=== PATIENT | female | born 1960 | race Caucasian/White ===

== ENCOUNTER → 2016-08-15 | Outpatient (REF) | payer OTHER ==
[~2016-08-15] MED LIST: /PRAV20TA PO; ALEV220C2 PO; BACT800T5 PO; HEPA100SYR IV; IBUP200C PO; MULTTAB4 PO; NALL2INJ2 IV; SLF IV; SYNT100T PO; TYLE325T5 PO; VITA500046 PO; VITA500047 PO
[2016-08-15 14:19] LABS: EOS # 0.1 K/mm3 (0.0-0.50); EOS % 3.2 % (0.0-3.0); LARGE UNSTAINED CELL # 0.2 K/mm3 (0.0-0.4); LARGE UNSTAINED CELL % 4.6 % (0.0-4.0); LYMPH # 1.8 K/mm3 (1.5-4.5); LYMPH % 39.7 % (24.0-44.0); MEAN CORPUSCULAR HGB CONC 32.7 g/dl (32.0-36.5); MONO # 0.2 K/mm3 (0.0-0.8); MONO % 4.8 % (0.0-5.0); NEUTROPHILS # 1.9 K/mm3 (1.8-7.7); NEUTROPHILS % 46.7 % (36.0-66.0); PLATELET COUNT, AUTOMATED 224 k/mm3 (150-450); RED CELL DISTRIBUTION WIDTH 13.8 % (11.5-14.5); WHITE BLOOD COUNT 4.1 K/mm3 (4.0-10.0)
[2016-08-15 15:21] LABS: ALBUMIN 3.6 GM/DL (3.2-5.2); ALKALINE PHOSPHATASE 78 U/L (45-117); ALT/SGPT 36 U/L (12-78); ANION GAP 10 MEQ/L (8-16); AST/SGOT 21 U/L (15-37); BILIRUBIN,TOTAL 0.3 MG/DL (0.2-1.0); BLOOD UREA NITROGEN 12 MG/DL (7-18); CARBON DIOXIDE LEVEL 25 MEQ/L (21-32); CHLORIDE LEVEL 106 MEQ/L (98-107); CHOLESTEROL LEVEL 178 MG/DL (<200); CREATININE FOR GFR 0.83 MG/DL (0.55-1.02); FREE T4 1.12 NG/DL (0.76-1.46); GLOMERULAR FILTRATION RATE > 60.0 (>51); GLUCOSE, FASTING 106 MG/DL (70-105); POTASSIUM SERUM 4.5 MEQ/L (3.5-5.1); SODIUM LEVEL 141 MEQ/L (136-145); TOTAL PROTEIN 6.6 GM/DL (6.4-8.2); TRIGLYCERIDES LEVEL 180 MG/DL (<150)
== END ==
LOC: M LABDRAW1 12:51
PROVIDERS: ATTEND Family Medicine
DX: E78.2 Mixed hyperlipidemia (principal); E03.9 Hypothyroidism, unspecified

== ENCOUNTER → 2016-10-18 | Day surgery (SDC) | payer BC, OTHER ==
[~2016-10-18] VITALS: Ht 167.6 cm; Wt 136.1 kg
[~2016-10-18] MED LIST changes: +ASPI81TA85 PO; +COQ1100C PO; +LR 1,000 ML IV SCH; +MIDAZOLAM INJ 2 MG/2 ML VIAL (J2250) As Ordered ONE; +PRAV1TAB39 PO; +PROPOFOL 200 MG/20 ML VIAL As Ordered ONE; +SYNT125T PO; +VITA50003 PO
--- NOTE | 2016-10-18 11:53 | ROOR ---
Patient Name: Jadyn Burgess Procedure Date: 10/18/2016 10:44 AM Date of : 1960 Age: 56 Gender: Female Note Status: Finalized Procedure: Colonoscopy Indications: High risk colon cancer surveillance: Personal history of colonic polyps Providers: Richard Sahu Jr, MD Referring MD: Richard Sahu Jr, MD Requesting Provider: Medicines: Propofol per Anesthesia Complications: No immediate complications. Procedure: Pre-Anesthesia Assessment: - Prior to the procedure, a History and Physical was performed, and patient medications and allergies were reviewed. The patient is competent. The risks and benefits of the procedure and the sedation options and risks were discussed with the patient. All questions were answered and informed consent was obtained. Patient identification and proposed procedure were verified by the physician and the nurse in the pre-procedure area and in the procedure room. Mental Status Examination: alert and oriented. Airway Examination: normal oropharyngeal airway and neck mobility. Respiratory Examination: clear to auscultation. CV Examination: normal. ASA Grade Assessment: II - A patient with mild systemic disease. After reviewing the risks and benefits, the patient was deemed in satisfactory condition to undergo the procedure. The anesthesia plan was to use moderate sedation / analgesia (conscious sedation). Immediately prior to administration of medications, the patient was re-assessed for adequacy to receive sedatives. The heart rate, respiratory rate, oxygen saturations, blood pressure, adequacy of pulmonary ventilation, and response to care were monitored throughout the procedure. The physical status of the patient was re-assessed after the procedure. The Colonoscope was introduced through the anus and advanced to the cecum, identified by appendiceal orifice and ileocecal valve. The colonoscopy was performed without difficulty. The patient tolerated the procedure well. The quality of the bowel preparation was adequate and fair. Findings: The perianal and digital rectal examinations were normal. Pertinent negatives include normal sphincter tone, no palpable rectal lesions and no anal lesion or abnormality was detected. Multiple small and large-mouthed diverticula were found in the sigmoid colon. A few small and large-mouthed diverticula were found in the transverse colon and ascending colon. The rectum, recto-sigmoid colon, descending colon, transverse colon, ascending colon, cecum and ileocecal valve appeared normal. Impression: - Preparation of the colon was fair. - Diverticulosis in the sigmoid colon. - Diverticulosis in the transverse colon and in the ascending colon. - The rectum, recto-sigmoid colon, descending colon, transverse colon, ascending colon, cecum and ileocecal valve are normal. - No specimens collected. Recommendation: - Discharge patient to home (ambulatory). - Repeat colonoscopy in 5 years for surveillance. Richard Sahu MD Richard Sahu Jr, MD 10/18/2016 11:53:18 AM This report has been signed electronically. Number of Addenda: 0 Note Initiated On: 10/18/2016 10:44 AM Estimated Blood Loss: Estimated blood loss: none.
[2016-10-18 13:00] VITALS: BP 147/69
== END | disposition home or self-care (01) ==
LOC: M SDC 09:41
PROVIDERS: ATTEND Surgery
DX: Z12.11 Encounter for screening for malignant neoplasm of colon (principal); Z86.010 Personal history of colon polyps; K57.30 Diverticulosis of large intestine without perforation or abscess without bleeding; E78.5 Hyperlipidemia, unspecified; E03.9 Hypothyroidism, unspecified; K21.9 Gastro-esophageal reflux disease without esophagitis; E66.01 Morbid (severe) obesity due to excess calories; G47.30 Sleep apnea, unspecified; Z79.82 Long term (current) use of aspirin; Z79.899 Other long term (current) drug therapy; Z85.41 Personal history of malignant neoplasm of cervix uteri; Z92.3 Personal history of irradiation
CPT/HCPCS: 45378; J2250

== ENCOUNTER → 2017-10-06 | Outpatient (REF) | payer OTHER ==
[2017-10-06 11:04] LABS: BASO # 0.1 10^3/uL (0.0-0.2); BASO % 1.2 % (0.0-1.0); EOS # 0.1 10^3/uL (0.0-0.50); EOS % 2.3 % (0.0-3.0); HEMATOCRIT 42.6 % (36.0-47.0); HEMOGLOBIN 13.9 g/dl (12.0-15.5); IMMATURE GRANULOCYTE % 0.2 % (0-3.0); LYMPH # 1.8 10^3/uL (1.5-4.5); LYMPH % 42.6 % (24.0-44.0); MEAN CORPUSCULAR HGB CONC 32.6 g/dl (32.0-36.5); MEAN CORPUSCULAR VOLUME 88.8 fl (80.0-96.0); MONO # 0.3 10^3/uL (0.0-0.8); NEUTROPHILS % 45.7 % (36.0-66.0); PLATELET COUNT, AUTOMATED 258 10^3/uL (150-450); RED CELL DISTRIBUTION WIDTH 13.8 % (11.5-14.5); WHITE BLOOD COUNT 4.3 10^3/uL (4.0-10.0)
[2017-10-06 11:32] LABS: ESTIMATED AVERAGE GLUCOSE 128 MG/DL (60-110); HEMOGLOBIN A1c 6.1 %
[2017-10-06 11:39] LABS: ALBUMIN 3.5 GM/DL (3.2-5.2); ALBUMIN/GLOBULIN RATIO 1.09 (1.00-1.93); ALKALINE PHOSPHATASE 80 U/L (45-117); ALT/SGPT 47 U/L (12-78); ANION GAP 7 MEQ/L (8-16); AST/SGOT 22 U/L (7-37); BILIRUBIN,TOTAL 0.4 MG/DL (0.2-1.0); BLOOD UREA NITROGEN 11 MG/DL (7-18); CALCIUM LEVEL 8.7 MG/DL (8.5-10.1); CARBON DIOXIDE LEVEL 27 MEQ/L (21-32); CHLORIDE LEVEL 107 MEQ/L (98-107); CHOLESTEROL LEVEL 192 MG/DL (<200); CHOLESTEROL RISK RATIO 4.682 (<5); CREATININE FOR GFR 0.73 MG/DL (0.55-1.30); GLOMERULAR FILTRATION RATE > 60.0 (>51); GLUCOSE, FASTING 101 MG/DL (70-100); HDL CHOLESTEROL 41 MG/DL (>40); LDL CHOLESTEROL 123.6 MG/DL (<100); NON-HDL-C 151 MG/DL; POTASSIUM SERUM 4.5 MEQ/L (3.5-5.1); SODIUM LEVEL 141 MEQ/L (136-145); THYROID STIMULATING HORMONE 0.942 uIU/ML (0.358-3.740); TOTAL PROTEIN 6.7 GM/DL (6.4-8.2); TRIGLYCERIDES LEVEL 137 MG/DL (<150)
== END ==
LOC: M LABDRAW1 10:42
DX: Z00.00 Encounter for general adult medical examination without abnormal findings (principal); E03.9 Hypothyroidism, unspecified; R73.01 Impaired fasting glucose
CPT/HCPCS: 84443

== ENCOUNTER → 2018-05-07 | Outpatient (REF) | payer OTHER ==
[2018-05-07 19:21] LABS: ALBUMIN 3.7 GM/DL (3.2-5.2); ALBUMIN/GLOBULIN RATIO 1.19 (1.00-1.93); ALKALINE PHOSPHATASE 68 U/L (45-117); ALT/SGPT 65 U/L (12-78); ANION GAP 7 MEQ/L (8-16); AST/SGOT 29 U/L (7-37); BILIRUBIN,TOTAL 0.4 MG/DL (0.2-1.0); BLOOD UREA NITROGEN 19 MG/DL (7-18); CALCIUM LEVEL 9.2 MG/DL (8.5-10.1); CARBON DIOXIDE LEVEL 28 MEQ/L (21-32); CHLORIDE LEVEL 105 MEQ/L (98-107); CREATININE FOR GFR 0.82 MG/DL (0.55-1.30); FREE T4 1.15 NG/DL (0.76-1.46); GLOMERULAR FILTRATION RATE > 60.0 (>51); GLUCOSE, FASTING 90 MG/DL (70-100); POTASSIUM SERUM 4.7 MEQ/L (3.5-5.1); SODIUM LEVEL 140 MEQ/L (136-145); THYROID STIMULATING HORMONE 0.858 uIU/ML (0.358-3.740); TOTAL PROTEIN 6.8 GM/DL (6.4-8.2)
[2018-05-07 19:39] LABS: ESTIMATED AVERAGE GLUCOSE 128 MG/DL (60-110); HEMOGLOBIN A1c 6.1 %
== END ==
LOC: M LABDRAW1 17:22
DX: E03.9 Hypothyroidism, unspecified (principal); R73.01 Impaired fasting glucose

== ENCOUNTER → 2018-11-07 | Outpatient (REF) | payer OTHER ==
[~2018-11-07] MED LIST changes: -/PRAV20TA PO; -LR 1,000 ML IV SCH; -MIDAZOLAM INJ 2 MG/2 ML VIAL (J2250) As Ordered ONE; -PROPOFOL 200 MG/20 ML VIAL As Ordered ONE; -VITA50003 PO; +VITA50005 PO
[2018-11-07 13:18] LABS: ALBUMIN 3.5 GM/DL (3.2-5.2); ALT/SGPT 53 U/L (12-78); BILIRUBIN,TOTAL 0.5 MG/DL (0.2-1.0); BLOOD UREA NITROGEN 16 MG/DL (7-18); CALCIUM LEVEL 8.9 MG/DL (8.5-10.1); CARBON DIOXIDE LEVEL 24 MEQ/L (21-32); CHLORIDE LEVEL 105 MEQ/L (98-107); CHOLESTEROL LEVEL 197 MG/DL (<200); CHOLESTEROL RISK RATIO 4.191 (<5); CREATININE FOR GFR 0.76 MG/DL (0.55-1.30); GLOMERULAR FILTRATION RATE > 60.0 (>51); GLUCOSE, FASTING 94 MG/DL (70-100); HDL CHOLESTEROL 47 MG/DL (>40); LDL CHOLESTEROL 121 MG/DL (<100); NON-HDL-C 150 MG/DL; POTASSIUM SERUM 4.3 MEQ/L (3.5-5.1); SODIUM LEVEL 139 MEQ/L (136-145); TOTAL PROTEIN 6.9 GM/DL (6.4-8.2); TRIGLYCERIDES LEVEL 144 MG/DL (<150)
== END ==
LOC: M LABDRAW1 11:18
PROVIDERS: ATTEND Family Medicine
DX: R73.01 Impaired fasting glucose (principal); E78.2 Mixed hyperlipidemia

== ENCOUNTER → 2019-05-13 | Outpatient (REF) | payer OTHER ==
[2019-05-13 12:38] LABS: FREE T4 1.19 NG/DL (0.76-1.46); THYROID STIMULATING HORMONE 2.1 uIU/ML (0.358-3.740)
[2019-05-13 13:26] LABS: HEMOGLOBIN A1c 5.7 %
== END ==
LOC: M LABDRAW1 11:44
PROVIDERS: ATTEND Family Medicine
DX: E03.9 Hypothyroidism, unspecified (principal); R73.01 Impaired fasting glucose

== ENCOUNTER → 2020-04-29 | Outpatient (CLI) | payer OTHER ==
[~2020-04-29] MED LIST changes: -ASPI81TA85 PO; +ASPI81TA86 PO
[2020-04-29 12:21] LABS: ALBUMIN 3.5 GM/DL (3.2-5.2); ALT/SGPT 49 U/L (12-78); BILIRUBIN,TOTAL 0.5 MG/DL (0.2-1.0); BLOOD UREA NITROGEN 13 MG/DL (7-18); CALCIUM LEVEL 9.4 MG/DL (8.8-10.2); CARBON DIOXIDE LEVEL 28 MEQ/L (21-32); CHLORIDE LEVEL 105 MEQ/L (98-107); CHOLESTEROL LEVEL 257 MG/DL (<200); CHOLESTEROL RISK RATIO 5.586 (<5); CREATININE FOR GFR 0.65 MG/DL (0.55-1.30); GLOMERULAR FILTRATION RATE > 60.0 (>45); GLUCOSE, FASTING 95 MG/DL (70-100); HDL CHOLESTEROL 46 MG/DL (>40); LDL CHOLESTEROL 181 MG/DL (<100); NON-HDL-C 211 MG/DL; POTASSIUM SERUM 4.9 MEQ/L (3.5-5.1); SODIUM LEVEL 139 MEQ/L (136-145); TOTAL PROTEIN 6.8 GM/DL (6.4-8.2); TRIGLYCERIDES LEVEL 152 MG/DL (<150)
== END ==
LOC: M WUC 08:43
PROVIDERS: ATTEND Family Medicine
DX: E78.2 Mixed hyperlipidemia (principal); R73.01 Impaired fasting glucose

== ENCOUNTER 2021-01-09 08:51 | Emergency (ER) | payer BC, OTHER ==
[~2021-01-09] VITALS: Ht 167.6 cm; Wt 144.6 kg
[2021-01-09 09:54] LABS: HEMATOCRIT 46.6 % (36.0-47.0); HEMOGLOBIN 15.2 g/dl (12.0-15.5); MEAN CORPUSCULAR HEMOGLOBIN 29.4 pg (27.0-33.0); MEAN CORPUSCULAR HGB CONC 32.6 g/dl (32.0-36.5); MEAN CORPUSCULAR VOLUME 90.1 fl (80.0-96.0); PLATELET COUNT, AUTOMATED 284 10^3/uL (150-450); RED BLOOD COUNT 5.17 10^6/uL (4.00-5.40); WHITE BLOOD COUNT 6.8 10^3/uL (4.0-10.0)
[2021-01-09 10:16] LABS: HEMOGLOBIN A1c 5.9 %
[2021-01-09 10:19] LABS: BLOOD UREA NITROGEN 13 MG/DL (7-18); CALCIUM LEVEL 9.2 MG/DL (8.8-10.2); CARBON DIOXIDE LEVEL 25 MEQ/L (21-32); CHLORIDE LEVEL 109 MEQ/L (98-107); CK-MB VALUE MASS 1.2 NG/ML (<3.6); CPK CREATINE PHOSPHOKINASE 57 U/L (26-192); GLOMERULAR FILTRATION RATE > 60.0 (>45); GLUCOSE, FASTING 109 MG/DL (70-100); MB/CK RELATIVE INDEX 2.11 (< OR =4); POTASSIUM SERUM 4.5 MEQ/L (3.5-5.1); SODIUM LEVEL 140 MEQ/L (136-145); TROPONIN I < 0.02 NG/ML (< 0.10)
[2021-01-09 10:21] LABS: ATYPICAL LYMPH 13 % (0-5); EOSINOPHILS 2 % (0-3); LYMPHOCYTES 23 % (16-44); MONOCYTES 8 % (0-5); NEUTROPHILS 53 % (28-66)
[2021-01-09 10:24] LABS: PLATELET ESTIMATE NORMAL (NORMAL)
--- NOTE | 2021-01-09 11:01 | ECGEPIP ---
[facility] - ED Test Date: 2021-01-09 Pat Name: SAADIA SCHWARTZ Department: Room: - Gender: Female [employer]: : 1960 Requested By: Thad Allen Order Number: [id number] Reading MD: Ashlee Lezama Measurements Intervals [place] Rate: 68 P: 38 [place]: 168 QRS: 35 QRSD: 90 T: 36 QT: 434 QTc: 461 Interpretive Statements Normal sinus rhythm Cannot rule out Anterior infarct , age undetermined, clinical correlation no prior Electronically Signed on 01-09-2021 11:01:12 EDT by Ashlee Lezama
--- NOTE | 2021-01-09 11:03 | REP ---
INDICATION: dizziness. COMPARISON: None. TECHNIQUE: CT BRAIN PERFORMED IN THE AXIAL PLANE. CORONAL RECONSTRUCTION IMAGES ARE PERFORMED. FINDINGS: THE VENTRICLES ARE NORMAL IN SIZE AND POSITION FOR THE PATIENT'S STATED AGE. THERE IS SOME HYPEROSTOSIS FRONTALIS INTERNA, NOT UNCOMMONLY SEEN IN THIS AGE GROUP VARIATION. THERE IS NO MIDLINE SHIFT OR MASS EFFECT. JOHNSON-WHITE DIFFERENTIATION IS WELL MAINTAINED. SOME MINOR HETEROGENEOUS WHITE MATTER ATTENUATION THAT MAY SUGGEST SOME MILD SMALL VESSEL ISCHEMIC CHANGE, CHRONIC. THERE IS NO ACUTE INTRACRANIAL HEMORRHAGE OR EXTRA-AXIAL FLUID COLLECTION. NO MASS OR ABNORMAL CALCIFICATION. POSTERIOR FOSSA AND BASAL CISTERNS ARE GROSSLY INTACT. SOME MINOR ATHEROSCLEROTIC CALCIFICATIONS IN SIPHON IS BONE WINDOW EXAMINATION IS OTHERWISE UNREMARKABLE. VISUALIZED MASTOID AIR CELLS AND PARANASAL SINUSES ARE CLEAR. IMPRESSION: SOME MINOR SMALL-VESSEL ISCHEMIC CHANGES IN THE WHITE MATTER, MINOR ATHEROSCLEROTIC CALCIFICATIONS IN THE CAROTID SIPHONS BUT OTHERWISE NEGATIVE NONCONTRAST CT BRAIN. NOTHING ACUTE. <Electronically signed by Brant Bingham > 01/09/21 [id number]
[2021-01-09] MEDS ORDERED: ISOVUE-370 76% 100ML VIAL As Ordered ONE (11:14)
--- NOTE | 2021-01-09 12:24 | REP ---
INDICATION: dizziness r/o cerebellar CVA. COMPARISON: CT brain 01/09/2021 TECHNIQUE: CT angiogram brain with bolus Isovue 371 mL scanning through the brain with axial coronal and sagittal MIP reformats and standard sagittal coronal reformats. 3D surface rendering of the vascular tree also reconstructed. FINDINGS: There is no enhancing mass on the contrast images in axial or other projections. Visualized mastoids and sinuses were clear there is deviation of the nasal septum towards the left. Orbits and contents are grossly symmetric and unremarkable. The vertebral arteries shows slightly larger left than right contribution to the basilar artery is anatomic variation. They are tortuous and the basilar artery is tortuous without aneurysm or stenosis. Symmetric right left posterior cerebral arteries without stenosis or aneurysm in their supply of the posterior fossa. The right internal carotid artery shows atherosclerotic plaque at the skull base and some in the carotid siphon without stenosis or aneurysm. Supraclinoid, A1 and M1 segments unremarkable. The A2, M2 and M3 segments also appear grossly intact on the right side without stenosis or aneurysm. No abnormal gyriform enhancement on either side. The left internal carotid artery at the skull base and to a lesser extent in the carotid siphon shows atherosclerotic plaque without stenosis or aneurysm the A1, M1 segments and supraclinoid carotid were intact. The A2 and M2/M3 segments also grossly intact throughout. IMPRESSION: 1. Some minor atherosclerotic calcifications of the internal carotids at the skull base and in the carotid siphons without stenosis or aneurysm. Posterior circulation also without stenosis or aneurysm. 2. No abnormal enhancing mass, gyriform enhancement or abnormal meningeal enhancement suggested. Negative exam for acute vascular finding. <Electronically signed by Brant Bingham > 01/09/21 [id number]
--- NOTE | 2021-01-09 13:25 | REP ---
CONTRAST: 100 mL Isovue 370. INDICATION: Dizziness COMPARISON: CT angio head: 01/09/2021 TECHNIQUE: Bolus 100 mL Isovue 370 scanning from aortic arch to the skull base with coronal and sagittal standard and MIP reconstructions FINDINGS: Vascular: Extensive spray artifact related to the shoulders and body habitus considerations over the aortic arch and lower neck. That said no gross stenosis aneurysm or mass about the aortic arch and proximal great vessels. The right common carotid is without stenosis or aneurysm. There is slight dilatation of the bulb but no significant soft or calcific plaque in the proximal ICA or ECA. The ICA to the skull base without stenosis aneurysm or significant plaque. The left common carotid shows some scattered areas of plaque without stenosis. Mild prominence of the bulb without stenosis or poststenotic dilatation present there are small calcifications at the bulb. The left internal carotid artery shows no stenosis or aneurysm to the skull base. The vertebral arteries are generally symmetric at their origins with slightly larger left than right diameter through their course as anatomic variation. The basilar artery shows no stenosis or aneurysm. Nonvascular lung apices without definite acute finding. Some mild interstitial changes are suspected. The bone windows show the upper thoracic vertebral bodies with some degenerative change but no destructive lesion portions of the 1st 4 rib pairs seen and medial clavicles are unremarkable. There is some cervical spondylosis from C 4 5 through C6-7 with disc space narrowing at C5-6 and C6-7 and no compression fracture or destructive lesion no definite prevertebral swelling. Airway intact. Some mild foraminal encroachment at C4-5, C5-6 and C6-7 due to combined factors. Central canal adequate. No definite pr added or submandibular mass. There are some scattered cervical lymph nodes bilaterally, all subcentimeter. IMPRESSION: 1. Some minor atherosclerotic plaque at the carotid bulb on the left but no stenosis or aneurysm of the right or left internal carotid from their origin at the bulb through the neck to the skull base. The vertebral arteries and proximal basilar artery without stenosis or aneurysm. Minor asymmetric size, left greater than right for the vertebral arteries is normal. 2. No other significant or acute finding. <Electronically signed by Brant Bingham > 01/09/21 [id number]
[2021-01-09] MEDS ORDERED: MECL-86 PO (14:09)
[2021-01-09 14:15] VITALS: BP 147/80
== END 2021-01-09 14:36 | disposition home or self-care (01) ==
LOC: M ED 08:51
DX: R42 Dizziness and giddiness (principal); I67.2 Cerebral atherosclerosis; R73.03 Prediabetes; E78.5 Hyperlipidemia, unspecified; E66.9 Obesity, unspecified; E03.9 Hypothyroidism, unspecified; G47.33 Obstructive sleep apnea (adult) (pediatric); Z90.710 Acquired absence of both cervix and uterus; Z79.890 Hormone replacement therapy
CPT/HCPCS: 36415; 70450; 70496; 70498; 80048; 82550; 82553; 83036; 84484; 85025; 93005; 99284; Q9967

== ENCOUNTER → 2021-02-08 | Outpatient (CLI) | payer BC, OTHER ==
[~2021-02-08] MED LIST changes: +MECL-86 PO
[2021-02-08 10:53] LABS: HEMATOCRIT 45.5 % (36.0-47.0); HEMOGLOBIN 14.3 g/dl (12.0-15.5); MEAN CORPUSCULAR HEMOGLOBIN 28.7 pg (27.0-33.0); MEAN CORPUSCULAR HGB CONC 31.4 g/dl (32.0-36.5); MEAN CORPUSCULAR VOLUME 91.4 fl (80.0-96.0); PLATELET COUNT, AUTOMATED 289 10^3/uL (150-450); RED BLOOD COUNT 4.98 10^6/uL (4.00-5.40); WHITE BLOOD COUNT 6.8 10^3/uL (4.0-10.0)
[2021-02-08 11:38] LABS: ALBUMIN 3.6 GM/DL (3.2-5.2); ALT/SGPT 57 U/L (12-78); BILIRUBIN,TOTAL 0.5 MG/DL (0.2-1.0); BLOOD UREA NITROGEN 17 MG/DL (7-18); CALCIUM LEVEL 8.6 MG/DL (8.8-10.2); CARBON DIOXIDE LEVEL 27 MEQ/L (21-32); CHLORIDE LEVEL 107 MEQ/L (98-107); CREATININE FOR GFR 0.71 MG/DL (0.55-1.30); GLOMERULAR FILTRATION RATE > 60.0 (>45); GLUCOSE, FASTING 112 MG/DL (70-100); POTASSIUM SERUM 4.7 MEQ/L (3.5-5.1); SODIUM LEVEL 139 MEQ/L (136-145); TOTAL PROTEIN 6.4 GM/DL (6.4-8.2)
[2021-02-08 12:29] LABS: ATYPICAL LYMPH 11 % (0-5); BASOPHILS 1 % (0-1); LYMPHOCYTES 51 % (16-44); MONOCYTES 6 % (0-5); NEUTROPHILS 30 % (28-66)
[2021-02-08 12:30] LABS: PLATELET ESTIMATE NORMAL (NORMAL)
== END ==
LOC: M PLALAB 08:07
PROVIDERS: ATTEND Family Medicine
DX: R73.01 Impaired fasting glucose (principal); R03.0 Elevated blood-pressure reading, without diagnosis of hypertension